=== PATIENT | female | born 1935 | race Caucasian/White ===

== ENCOUNTER 2019-05-20 10:58 | Inpatient (IN) | payer OTHER, MEDICAID ==
[~2019-05-20] VITALS: Ht 149.9 cm; Wt 34.9 kg
[2019-05-20 11:17] VITALS: BP_SYST 125
[2019-05-20] MEDS ORDERED: NACL 0.9% 1,000 ML IV ONE (11:47)
[2019-05-20 12:10] LABS: BASOPHILS % (AUTO) 0.4 % (0.0-2.0); HEMATOCRIT 46.4 % (36-48); HEMOGLOBIN 15.9 g/dL (12.0-16.0); LYMPHOCYTES # (AUTO) 0.9 K/uL (1.0-5.5); LYMPHOCYTES % (AUTO) 10.1 % (20.5-51.5); MEAN CORPUSCULAR HEMOGLOBIN 31 pg (27-31); MEAN CORPUSCULAR HGB CONC 34 % (32-36); MEAN CORPUSCULAR VOLUME 89 fL (79.0-98.0); MONOCYTES # (AUTO) 0.9 K/uL (0.0-1.0); MONOCYTES % (AUTO) 9.8 % (1.7-9.3); NEUTROPHILS # (AUTO) 7.5 K/uL (1.8-7.7); NEUTROPHILS % (AUTO) 79.7 % (40.0-70.0); PLATELET COUNT (AUTO) 215 K/uL (130-430); RED BLOOD CELL COUNT(AUTO) 5.21 MIL/uL (4.2-6.2); RED CELL DISTRIBUTION WIDTH 14.6 % (9.0-15.0); WHITE BLOOD COUNT (AUTO) 9.4 K/uL (4.8-10.8)
[2019-05-20 12:23] LABS: ANION GAP 6 (5-15); CALCIUM 9.4 mg/dL (8.4-11.0); CHLORIDE 99 mmol/L (98-107); CREATININE 0.93 mg/dL (0.55-1.30); GLUCOSE 147 mg/dL (70-99); POTASSIUM 3.1 mmol/L (3.5-5.1); SODIUM SERUM 143 mmol/L (136-145); UREA NITROGEN, BLOOD 19 mg/dL (8-21)
[2019-05-20 12:31] LABS: ALANINE AMINOTRANSFERASE 16 U/L (12-78); ALBUMIN 3.9 g/dL (3.4-4.8); ASPARTATE AMINOTRANSFERASE 20 U/L (10-37); TOTAL BILIRUBIN 1.1 mg/dL (0.0-1.0)
[2019-05-20 12:39] LABS: LIPASE 103 U/L (73-393)
[2019-05-20 13:24] LABS: BILIRUBIN,URINE NEGATIVE (NEGATIVE); CLARITY/URINE SL CLOUDY (CLEAR); COLOR,URINE YELLOW (YELLOW); GLUCOSE,URINE NEGATIVE (NEGATIVE); KETONES,URINE TRACE (NEGATIVE); LEUKOCYTE ESTERASE ,URINE 1+ (NEGATIVE); NITRITE, URINE POSITIVE (NEGATIVE); PH,URINE 6.5 (5.0-8.0); PROTEIN URINE 1+ (NEGATIVE)
[2019-05-20 13:26] LABS: BLOOD, URINE TRACE (NEGATIVE)
[2019-05-20 13:30] LABS: BACTERIA,URINE MANY /HPF (None Seen); WBC,URINE 20-50 /HPF (0-3)
[2019-05-20] MEDS ORDERED: cefTRIAXone 1 GM IVPB PREMIX 50 ML IV ONE (15:15)
[2019-05-20] MEDS ORDERED: MORPHINE 4 MG/ML INJ. SYRINGE IVP ONE (15:15)
[2019-05-20] MEDS ORDERED: ONDANSETRON HCL 4 MG/2 ML VIAL IVP ONE (15:15)
[2019-05-20] MEDS ORDERED: ONDANSETRON HCL 4 MG/2 ML VIAL IVP PRN (16:15)
[2019-05-20 18:11] VITALS: BP_SYST 143
[2019-05-20 19:30] VITALS: BP_SYST 150
[2019-05-20] MEDS: NACL 0.9% 1,000 ML IV SCH (19:59)
[2019-05-20 20:00] VITALS: BP_SYST 150
[2019-05-20 23:41] VITALS: BP_SYST 157
[2019-05-21] MEDS: NACL 0.9% 1,000 ML IV SCH ×2 (07:02→21:25)
[2019-05-21 07:30] VITALS: BP_SYST 121
[2019-05-21 08:14] VITALS: BP_SYST 121
[2019-05-21] MEDS ORDERED: POTASSIUM CHLORIDE 20 MEQ TAB.PRT.SR PO ONE (09:45)
[2019-05-21] MEDS: PANTOPRAZOLE SODIUM 40 MG/VIAL (PROTONIX) IVP SCH (10:06)
[2019-05-21] MEDS: cefTRIAXone 1 GM IVPB PREMIX 50 ML IV SCH (10:11)
[2019-05-21] MEDS ORDERED: KCL 40 mEq in 100 mL (PREMIX) 100 ML IV ONE (10:30)
[2019-05-21] MEDS ORDERED: POTASSIUM CHLORIDE 40 MEQ in NS 250 ML IV ONE (10:45)
[2019-05-21 12:00] VITALS: BP_SYST 148
[2019-05-21] MEDS: ACETAMINOPHEN 325 MG TABLET PO PRN (12:44)
[2019-05-21] MEDS: DOCUSATE SODIUM 100 MG CAPSULE PO PRN (15:51)
[2019-05-21] MEDS ORDERED: LACTULOSE 20 GM/30 ML UDC PO ONE (16:15)
[2019-05-21] MEDS ORDERED: COMMUNICATION ORDER XX ONE (18:45)
[2019-05-21] MEDS ORDERED: MINERAL OIL 133 ML ENEMA RC SCH (18:45)
[2019-05-21] MEDS: POLYETHYLENE GLYCOL 3350, 17 GM/ POWD.PACK PO SCH ×2 (18:52→21:00)
[2019-05-21] MEDS: MINERAL OIL 30 ML UDC PO SCH ×2 (19:47→21:00)
[2019-05-21 20:00] VITALS: BP_SYST 127
[2019-05-22 00:36] VITALS: BP_SYST 132
[2019-05-22 07:24] LABS: BASOPHILS % (AUTO) 0.5 % (0.0-2.0); EOSINOPHILS % (AUTO) 0.8 % (0.0-4.0); HEMATOCRIT 37.6 % (36-48); HEMOGLOBIN 12.5 g/dL (12.0-16.0); LYMPHOCYTES % (AUTO) 22.3 % (20.5-51.5); MEAN CORPUSCULAR HEMOGLOBIN 30 pg (27-31); MEAN CORPUSCULAR HGB CONC 33 % (32-36); MEAN CORPUSCULAR VOLUME 91 fL (79.0-98.0); MONOCYTES # (AUTO) 0.4 K/uL (0.0-1.0); MONOCYTES % (AUTO) 10.1 % (1.7-9.3); NEUTROPHILS # (AUTO) 2.9 K/uL (1.8-7.7); NEUTROPHILS % (AUTO) 66.3 % (40.0-70.0); PLATELET COUNT (AUTO) 128 K/uL (130-430); RED BLOOD CELL COUNT(AUTO) 4.15 MIL/uL (4.2-6.2); RED CELL DISTRIBUTION WIDTH 14.3 % (9.0-15.0); WHITE BLOOD COUNT (AUTO) 4.4 K/uL (4.8-10.8)
[2019-05-22 07:55] LABS: ALBUMIN 2.4 g/dL (3.4-4.8); ANION GAP 4 (5-15); ASPARTATE AMINOTRANSFERASE 15 U/L (10-37); CALCIUM 7.7 mg/dL (8.4-11.0); CHLORIDE 112 mmol/L (98-107); GLUCOSE 96 mg/dL (70-99); POTASSIUM 3.7 mmol/L (3.5-5.1); SODIUM SERUM 145 mmol/L (136-145); TOTAL BILIRUBIN 0.4 mg/dL (0.0-1.0); UREA NITROGEN, BLOOD 10 mg/dL (8-21)
[2019-05-22 08:21] VITALS: BP_SYST 140
[2019-05-22 08:28] LABS: ALANINE AMINOTRANSFERASE 9 U/L (12-78)
[2019-05-22] MEDS ORDERED: MINERAL OIL 133 ML ENEMA RC ONE (09:00)
[2019-05-22] MEDS: THIAMINE HCL 100 MG TABLET GT SCH (10:54)
[2019-05-22] MEDS: FOLIC ACID 1 MG TABLET PO SCH (10:54)
[2019-05-22] MEDS: DOCUSATE SODIUM 100 MG CAPSULE PO PRN (10:54)
[2019-05-22] MEDS: PANTOPRAZOLE SODIUM 40 MG/VIAL (PROTONIX) IVP SCH (11:01)
[2019-05-22] MEDS: MINERAL OIL 30 ML UDC PO SCH ×2 (11:01→20:36)
[2019-05-22] MEDS: ACETAMINOPHEN 325 MG TABLET PO PRN (11:17)
[2019-05-22] MEDS: cefTRIAXone 1 GM IVPB PREMIX 50 ML IV SCH (11:20)
[2019-05-22] MEDS ORDERED: POLYETHYLENE GLYCOL 3350, 17 GM/ POWD.PACK PO ONE (13:45)
[2019-05-22] MEDS: NACL 0.9% 1,000 ML IV SCH (13:47)
[2019-05-22 14:32] VITALS: BP_SYST 118
[2019-05-22 16:43] VITALS: BP_SYST 113
[2019-05-22 20:00] VITALS: BP_SYST 124
[2019-05-23 00:03] VITALS: BP_SYST 134
[2019-05-23] MEDS: NACL 0.9% 1,000 ML IV SCH ×2 (01:21→15:44)
[2019-05-23 07:58] LABS: ALANINE AMINOTRANSFERASE 11 U/L (12-78); ALBUMIN 2.3 g/dL (3.4-4.8); ANION GAP 1 (5-15); ASPARTATE AMINOTRANSFERASE 13 U/L (10-37); CALCIUM 7.9 mg/dL (8.4-11.0); CHLORIDE 110 mmol/L (98-107); CREATININE 0.65 mg/dL (0.55-1.30); GLUCOSE 89 mg/dL (70-99); POTASSIUM 3.5 mmol/L (3.5-5.1); SODIUM SERUM 143 mmol/L (136-145); TOTAL BILIRUBIN 0.4 mg/dL (0.0-1.0); UREA NITROGEN, BLOOD 9 mg/dL (8-21)
[2019-05-23 08:00] VITALS: BP_SYST 153
[2019-05-23] MEDS: POLYETHYLENE GLYCOL 3350, 17 GM/ POWD.PACK PO SCH ×3 (08:36→21:00)
[2019-05-23] MEDS: MINERAL OIL 30 ML UDC PO SCH ×2 (08:36→21:00)
[2019-05-23] MEDS: FOLIC ACID 1 MG TABLET PO SCH (08:37)
[2019-05-23] MEDS: THIAMINE HCL 100 MG TABLET GT SCH (08:37)
[2019-05-23] MEDS: PANTOPRAZOLE SODIUM 40 MG/VIAL (PROTONIX) IVP SCH (08:37)
[2019-05-23] MEDS ORDERED: POLYETHYLENE GLYCOL 3350, 17 GM/ POWD.PACK PO SCH (09:00)
[2019-05-23] MEDS: CALCITONIN SALMON,SYNTHETIC 3.7 ML SPRAY.PUMP NS SCH (10:32)
[2019-05-23] MEDS: cefTRIAXone 1 GM IVPB PREMIX 50 ML IV SCH (10:32)
[2019-05-23] MEDS: LIDOCAINE PATCH 5% 1 EA TP SCH (10:33)
[2019-05-23 11:06] LABS: CEA 3.9 ng/mL (0.0-4.7)
[2019-05-23 11:34] VITALS: BP_SYST 95
[2019-05-23 15:57] VITALS: BP_SYST 129
[2019-05-23 20:00] VITALS: BP_SYST 103
[2019-05-24 00:16] VITALS: BP_SYST 135
[2019-05-24] MEDS: NACL 0.9% 1,000 ML IV SCH ×2 (05:53→21:46)
[2019-05-24 08:20] VITALS: BP_SYST 147
[2019-05-24 08:37] LABS: BASOPHILS % (AUTO) 0.6 % (0.0-2.0); EOSINOPHILS # (AUTO) 0.1 K/uL (0.0-0.4); EOSINOPHILS % (AUTO) 1.9 % (0.0-4.0); HEMATOCRIT 41.8 % (36-48); HEMOGLOBIN 14.1 g/dL (12.0-16.0); LYMPHOCYTES # (AUTO) 1.4 K/uL (1.0-5.5); LYMPHOCYTES % (AUTO) 30.1 % (20.5-51.5); MEAN CORPUSCULAR HEMOGLOBIN 30 pg (27-31); MEAN CORPUSCULAR HGB CONC 34 % (32-36); MEAN CORPUSCULAR VOLUME 90 fL (79.0-98.0); MONOCYTES # (AUTO) 0.4 K/uL (0.0-1.0); MONOCYTES % (AUTO) 9.6 % (1.7-9.3); NEUTROPHILS # (AUTO) 2.6 K/uL (1.8-7.7); NEUTROPHILS % (AUTO) 57.8 % (40.0-70.0); PLATELET COUNT (AUTO) 152 K/uL (130-430); RED BLOOD CELL COUNT(AUTO) 4.64 MIL/uL (4.2-6.2); RED CELL DISTRIBUTION WIDTH 14.3 % (9.0-15.0); WHITE BLOOD COUNT (AUTO) 4.5 K/uL (4.8-10.8)
[2019-05-24] MEDS: LIDOCAINE PATCH 5% 1 EA TP SCH (08:47)
[2019-05-24] MEDS: PANTOPRAZOLE SODIUM 40 MG/VIAL (PROTONIX) IVP SCH (08:54)
[2019-05-24] MEDS: FOLIC ACID 1 MG TABLET PO SCH ×2 (08:54→08:59)
[2019-05-24] MEDS: THIAMINE HCL 100 MG TABLET GT SCH ×2 (08:54→08:59)
[2019-05-24] MEDS: POLYETHYLENE GLYCOL 3350, 17 GM/ POWD.PACK PO SCH ×3 (08:54→21:44)
[2019-05-24] MEDS: CALCITONIN SALMON,SYNTHETIC 3.7 ML SPRAY.PUMP NS SCH (08:55)
[2019-05-24] MEDS: MINERAL OIL 30 ML UDC PO SCH ×2 (08:56→21:45)
[2019-05-24 08:58] LABS: ALANINE AMINOTRANSFERASE 8 U/L (12-78); ALBUMIN 2.4 g/dL (3.4-4.8); ASPARTATE AMINOTRANSFERASE 12 U/L (10-37); CHLORIDE 106 mmol/L (98-107); CREATININE 0.62 mg/dL (0.55-1.30); GLUCOSE 90 mg/dL (70-99); LIPASE 138 U/L (73-393); SODIUM SERUM 140 mmol/L (136-145); TOTAL BILIRUBIN 0.5 mg/dL (0.0-1.0); UREA NITROGEN, BLOOD 8 mg/dL (8-21)
[2019-05-24] MEDS: cefTRIAXone 1 GM IVPB PREMIX 50 ML IV SCH (09:00)
[2019-05-24 09:22] LABS: ANION GAP 5 (5-15)
[2019-05-24 11:49] VITALS: BP_SYST 134
[2019-05-24 15:28] VITALS: BP_SYST 130
[2019-05-24 21:35] VITALS: BP_SYST 133
[2019-05-25 00:33] VITALS: BP_SYST 145
[2019-05-25 09:21] VITALS: BP_SYST 123
[2019-05-25] MEDS: MINERAL OIL 30 ML UDC PO SCH (09:21)
[2019-05-25] MEDS: THIAMINE HCL 100 MG TABLET GT SCH (09:21)
[2019-05-25] MEDS: cefTRIAXone 1 GM IVPB PREMIX 50 ML IV SCH (09:21)
[2019-05-25] MEDS: FOLIC ACID 1 MG TABLET PO SCH (09:21)
[2019-05-25] MEDS: PANTOPRAZOLE SODIUM 40 MG/VIAL (PROTONIX) IVP SCH (09:21)
[2019-05-25] MEDS: POLYETHYLENE GLYCOL 3350, 17 GM/ POWD.PACK PO SCH (09:22)
[2019-05-25] MEDS: LIDOCAINE PATCH 5% 1 EA TP SCH (09:22)
[2019-05-25] MEDS: CALCITONIN SALMON,SYNTHETIC 3.7 ML SPRAY.PUMP NS SCH (09:22)
[2019-05-25] MEDS: NACL 0.9% 1,000 ML IV SCH (12:23)
[2019-05-25 12:36] VITALS: BP_SYST 119
[2019-05-25] MEDS: ACETAMINOPHEN 325 MG TABLET PO PRN (13:56)
[2019-05-25 15:20] VITALS: BP_SYST 119
[2019-05-25 15:28] VITALS: BP_SYST 140
== END 2019-05-25 19:02 | DRG 690 ==
LOC: SED 10:58 → SMU 16:09
PROVIDERS: ADMIT Internal Medicine; ATTEND Internal Medicine
DX: N39.0 Urinary tract infection, site not specified (principal); M48.50XA Collapsed vertebra, not elsewhere classified, site unspecified, initial encounter for fracture; K59.00 Constipation, unspecified; K80.20 Calculus of gallbladder without cholecystitis without obstruction; K52.9 Noninfective gastroenteritis and colitis, unspecified; I10 Essential (primary) hypertension; J44.9 Chronic obstructive pulmonary disease, unspecified; M19.90 Unspecified osteoarthritis, unspecified site; R26.9 Unspecified abnormalities of gait and mobility; K83.8 Other specified diseases of biliary tract; Z86.73 Personal history of transient ischemic attack (TIA), and cerebral infarction without residual deficits; Z79.899 Other long term (current) drug therapy; Z87.891 Personal history of nicotine dependence; Z93.0 Tracheostomy status
CPT/HCPCS: 36415; 72100-TC; 72131; 74181; 80053; 81000-TC; 82378; 83690-TC; 85025; 86301; 87086; 96361; 96365; 96374; 96375; 97116-GP; 97530-GP; 99285; 99291; C9113; J0696; J2270; J2405; J3480; J7030; J7050

== ENCOUNTER 2019-12-29 17:15 | Emergency (ER) | payer MEDICAID, OTHER ==
[~2019-12-29] VITALS: Ht 157.5 cm; Wt 59.9 kg
[2019-12-29 17:29] VITALS: BP_SYST 140
--- NOTE | 2019-12-29 17:45 | NUR ---
Patient to ER bed 1 to gown for evaluation. Side rails up. Report given to MAGED.
--- NOTE | 2019-12-29 17:55 | NUR ---
RECEIVED AND IN ROOM, C/O FALL. UPON ARRIVAL SHE WAS CALM, ALERT, RESP UNLABORED, SKIN WARM AND DRY. COMMUNICATES CLEARLY NAD. DENEIS HEAD INJURY OR LOC
--- NOTE | 2019-12-29 18:02 | NUR ---
DAUGHTER BEN SARDINIA [phone]
--- NOTE | 2019-12-29 18:12 | NUR ---
OFF TO X-RAY. PT CALM, ALERT, GOOD SPIRITS. NO DISTRESS
--- NOTE | 2019-12-29 18:28 | NUR ---
BACK FROM X-RAY. NO CHANGE IN CONDITION
[2019-12-29] MEDS ORDERED: KETOROLAC TROMETHAMINE 60 MG/2 ML VIAL IM ONE (19:45)
[2019-12-29 20:43] VITALS: BP_SYST 133
--- NOTE | 2019-12-29 20:43 | NUR ---
Patient given written and verbal discharge instructions and verbalizes understanding. ER MD discussed with patient the results and treatment provided. Patient in stable condition. ID arm band removed. Rx of TYLENOL given. Patient educated on pain management and to follow up with PMD. Pain Scale 3/10. Opportunity for questions provided and answered. Medication side effect fact sheet provided.
== END 2019-12-29 20:43 | disposition home or self-care (01) ==
LOC: SED 17:15
DX: S50.02XA Contusion of left elbow, initial encounter (principal); S80.02XA Contusion of left knee, initial encounter; S70.02XA Contusion of left hip, initial encounter; K21.9 Gastro-esophageal reflux disease without esophagitis; Z86.73 Personal history of transient ischemic attack (TIA), and cerebral infarction without residual deficits; Z86.79 Personal history of other diseases of the circulatory system; W01.0XXA Fall on same level from slipping, tripping and stumbling without subsequent striking against object, initial encounter; Y93.89 Activity, other specified; Y92.89 Other specified places as the place of occurrence of the external cause; Y99.8 Other external cause status
CPT/HCPCS: 72192; 73080; 73560; 96372; 99284; J1885

== ENCOUNTER 2020-10-15 21:24 | Emergency (ER) | payer OTHER ==
[~2020-10-15] VITALS: Ht 154.9 cm; Wt 49.9 kg
[2020-10-15 21:30] VITALS: BP_SYST 131
[2020-10-15] MEDS ORDERED: DIPH-TET-PERTUS Vaccine 0.5 ML VIAL (ADACEL) I.M. ONE (23:15)
[2020-10-16] MEDS ORDERED: HALOPERIDOL LACTATE 5 MG/ML VIAL IM ONE (01:15)
[2020-10-16] MEDS ORDERED: BENZTROPINE MESYLATE 2 MG/ 2 ML AMP IM ONE (01:15)
[2020-10-16] MEDS ORDERED: KETAMINE 30 MG/3 ML SYRINGE IVP ONE (02:45)
[2020-10-16 05:40] LABS: ANION GAP 6 (5-15); CALCIUM 8.5 mg/dL (8.4-11.0); CHLORIDE 101 mmol/L (98-107); CREATININE 0.88 mg/dL (0.55-1.30); GLUCOSE 102 mg/dL (70-99); POTASSIUM 4.9 mmol/L (3.5-5.1); SODIUM SERUM 135 mmol/L (136-145); UREA NITROGEN, BLOOD 15 mg/dL (8-21)
[2020-10-16 05:49] LABS: BASOPHILS % (AUTO) 0.6 % (0.0-2.0); EOSINOPHILS % (AUTO) 0.5 % (0.0-4.0); HEMATOCRIT 41.1 % (36-48); HEMOGLOBIN 13.5 g/dL (12.0-16.0); LYMPHOCYTES # (AUTO) 1.2 K/uL (1.0-5.5); LYMPHOCYTES % (AUTO) 16.6 % (20.5-51.5); MEAN CORPUSCULAR HEMOGLOBIN 29 pg (27-31); MEAN CORPUSCULAR HGB CONC 33 % (32-36); MEAN CORPUSCULAR VOLUME 88 fL (79.0-98.0); MONOCYTES # (AUTO) 0.6 K/uL (0.0-1.0); MONOCYTES % (AUTO) 8.1 % (1.7-9.3); NEUTROPHILS # (AUTO) 5.2 K/uL (1.8-7.7); NEUTROPHILS % (AUTO) 74.2 % (40.0-70.0); PLATELET COUNT (AUTO) 173 K/uL (130-430); RED BLOOD CELL COUNT(AUTO) 4.65 MIL/uL (4.2-6.2); RED CELL DISTRIBUTION WIDTH 13.7 % (9.0-15.0)
[2020-10-16 07:10] VITALS: BP_SYST 139
== END 2020-10-16 07:10 | disposition home or self-care (01) ==
LOC: SED 21:24
DX: S01.81XA Laceration without foreign body of other part of head, initial encounter (principal); W01.0XXA Fall on same level from slipping, tripping and stumbling without subsequent striking against object, initial encounter; Y93.89 Activity, other specified; Y92.89 Other specified places as the place of occurrence of the external cause; Y99.8 Other external cause status
CPT/HCPCS: 36415; 70450; 71045; 72125; 72170; 76376; 80048; 85025; 96372; 96374; 99285; J0515; J1630